=== PATIENT | male | born 1945 | race Caucasian/White ===

== ENCOUNTER 2018-12-16 07:26 | Outpatient (CLI) | payer OTHER ==
[~2018-12-16 07:26] MED LIST: AVALIDE 300-12.1 TAB PO; HYZAAR 100-121 UDTAB
== END 2018-12-16 07:42 | disposition home or self-care (01) ==
LOC: TOM 07:26
DX: N28.1 Cyst of kidney, acquired (principal)
CPT/HCPCS: 74177; Q9965

== ENCOUNTER 2018-12-16 08:10 | Outpatient (CLI) | payer OTHER | END 2018-12-16 08:38 | disposition home or self-care (01) | LOC: LAB 08:10 | DX: N28.1 Cyst of kidney, acquired (principal); Z51.81 Encounter for therapeutic drug level monitoring ==

== ENCOUNTER 2019-01-01 08:15 | Outpatient (CLI) | payer OTHER | END 2019-01-01 08:28 | disposition home or self-care (01) | LOC: TOM 08:15 | DX: R19.5 Other fecal abnormalities (principal); K56.600 Partial intestinal obstruction, unspecified as to cause ==

== ENCOUNTER 2019-09-25 13:41 | Emergency (ER) | payer OTHER ==
[~2019-09-25] VITALS: Ht 177.8 cm; Wt 105.2 kg
[2019-09-25] MEDS ORDERED: AVAPRO300 MG (14:11)
[2019-09-25] MEDS ORDERED: LIPITOR40 M1 (14:12)
== END 2019-09-25 18:23 | disposition home or self-care (01) ==
LOC: ER 13:41
DX: S13.4XXA Sprain of ligaments of cervical spine, initial encounter (principal); S29.011A Strain of muscle and tendon of front wall of thorax, initial encounter; V49.88XA Car occupant (driver) (passenger) injured in other specified transport accidents, initial encounter; Y93.89 Activity, other specified; Y92.488 Other paved roadways as the place of occurrence of the external cause; Y99.8 Other external cause status